=== PATIENT | female | born 1960 | race Caucasian/White ===

== ENCOUNTER 2023-07-15 14:02 | Emergency (ER) | payer MEDICARE, OTHER ==
[2023-07-15 14:21] LABS: APPEARANCE,URINE SLIGHTLY CLOUDY (CLEAR); BILIRUBIN,URINE MODERATE (NEGATIVE); GLUCOSE,URINE 250 (NEGATIVE); KETONES,URINE 15 (NEGATIVE); LEUKOCYTE ESTERASE,URINE LARGE (NEGATIVE); NITRITE,URINE POSITIVE (NEGATIVE); OCCULT BLOOD,URINE SMALL (NEGATIVE); PROTEIN,URINE >=300 (NEGATIVE); UROBILINOGEN,URINE >=8.0 mg/dL (0.2-1.0)
[2023-07-15 14:29] LABS: COLOR,URINE ORANGE (YELLOW)
[2023-07-15 14:30] LABS: EPITHELIAL CELLS,URINE FEW /HPF (NOT SEEN); WBC,URINE 20-30 /HPF (0-5/HPF)
[2023-07-15 14:31] LABS: BACTERIA,URINE MODERATE /HPF (0-FEW/HPF)
[2023-07-15 16:32] VITALS: BP 139/67; PULSE 86
[2023-07-15] MEDS ORDERED: Take Home: Nitrofurantoin Monohydrate/Macrocrystalline 100 MG, 6 Cap Pack PO ONE (17:28)
[2023-07-15] MEDS ORDERED: Take Home: Phenazopyridine 95 MG Tab, 4 Tab Pack PO ONE (17:29)
== END 2023-07-15 18:14 | disposition home or self-care (01) ==
LOC: DL.ED 14:02
DX: N39.0 Urinary tract infection, site not specified (principal); F17.210 Nicotine dependence, cigarettes, uncomplicated; Z91.048 Other nonmedicinal substance allergy status
CPT/HCPCS: 81001; 87086; 87088; 87186; 99283; A9270-GY

== ENCOUNTER 2025-09-27 11:35 | Emergency (ER) | payer MEDICARE, OTHER ==
[2025-09-27 11:58] VITALS: BP 152/63; PULSE 98
== END 2025-09-27 13:57 | disposition home or self-care (01) ==
LOC: DL.ED 11:35
DX: R07.89 Other chest pain (principal); Z91.048 Other nonmedicinal substance allergy status; Z79.899 Other long term (current) drug therapy
CPT/HCPCS: 71101-LT; 99283